=== PATIENT | male | born 1995 | race Caucasian/White ===

== ENCOUNTER 2018-06-16 18:23 | Emergency (ER) | payer BC ==
[2018-06-16 18:27] VITALS: BP 138/77
--- NOTE | 2018-06-16 18:46 | EDPHY ---
H & P Time Seen by Provider: 06/16/18 18:38 HPI/ROS: Chief complaint: Eye redness History of present illness: This is a 22-year-old male who presents to the emergency department for eye redness. He reports the onset of symptoms over the last 2 days. Symptoms have been slowly worsening. Initially his left eye was affected but now both eyes. He states he has had discharge from the eyes. His eyelashes are matting shut in the morning. No significant itching or discomfort. No visual disturbances. No associated signs or symptoms including respiratory infectious symptoms. He does not wear contacts or glasses. No report of trauma or foreign bodies getting into the eye. Smoking Status: Never smoked Physical Exam: General: Alert, nontoxic. Eyes: Conjunctivae diffusely injected. No subconjunctival hemorrhage. No hyphema. No hypopyon. PERRLA. EOM intact without reported discomfort. ENT: Tympanic membranes, external auditory canals, external ears and surrounding soft tissue including over the mastoids are unremarkable. Nasopharynx is not injected. There is no rhinorrhea. Oropharynx is not injected. There is no edema. There is no exudate. There is no asymmetry. The uvula is midline. No elevation of the tongue. There is no hoarseness, no drooling, no trismus, no stridor. Skin: No periorbital edema. Constitutional: Initial Vital Signs Temperature (C) 36.8 C 06/16/18 18:25 Heart Rate 74 06/16/18 18:25 Respiratory Rate 18 06/16/18 18:25 Blood Pressure 138/77 H 06/16/18 18:25 O2 Sat (%) 97 06/16/18 18:25 O2 Delivery Mode Room Air Allergies/Adverse Reactions: No Known Allergies Allergy (Unverified 06/16/18 18:27) Home Medications: Medication Instructions Recorded NK [No Known Home Meds] 06/16/18 MDM/Departure - MDM Medications Given: Discontinued Medications Polymyxin/Trimethoprim Sulfate (Polytrim Opht Drops) 1 drops EACHEYE Q4 JOCE Stop: 07/16/18 21:59 Last Admin: 06/16/18 19:34 Dose: 1 drop ED Course/Re-evaluation: Patient seen under the supervision of my primary supervising physician Dr. Petty Fisher. Patient presents with red eye, discharge and matting of the eyelashes. No report of eye discomfort or visual disturbance. I believe this is most likely a conjunctivitis. He will be started on Polytrim eyedrops. Home care is discussed. He is to follow up with a primary care doctor this week for recheck. Return precautions are given. Differential Diagnosis: Included but not limited to conjunctivitis, uveitis, iritis, foreign body - Depart Disposition: Home, Routine, Self-Care Clinical Impression: Acute conjunctivitis of both eyes Qualifiers: Acute conjunctivitis type: unspecified Qualified Code(s): H10.33 - Unspecified acute conjunctivitis, bilateral Condition: Good Instructions: Conjunctivitis (ED) Additional Instructions: Follow-up with a primary care doctor for continued evaluation and care this week Place 1 drop of the eye antibiotic into each eye every 4 hr while awake for 7 days, do not use more than 6 drops today Apply warm compresses to the eyes as discussed Maintain good hygiene including washing your hands frequently If symptoms worsen or new symptoms develop return to the emergency department for recheck Referrals: NONE *PRIMARY CARE P,. [Primary Care Provider] - As per Instructions [facility] [Clinic] - As per Instructions
[2018-06-16] MEDS ORDERED: POLYMYXIN B SULFATE/TMP 10 ML OPHT.BTL EACHEYE SCH (22:00)
== END 2018-06-16 19:38 | disposition home or self-care (01) ==
DX: H10.33 Unspecified acute conjunctivitis, bilateral (principal)